=== PATIENT | female | born 1995 ===

== ENCOUNTER 2017-11-11 13:33 | Emergency (ER) | payer OTHER ==
[2017-11-11 13:42] VITALS: PULSE 78
--- NOTE | 2017-11-11 14:02 | ED PDOC ---
HPI: Allergic Reaction Time Seen by Provider: 11/11/17 13:42 Chief Complaint (Nursing): Allergic Reaction Chief Complaint (Provider): Allergic reaction History Per: Patient Additional Complaint(s): Pt is a 22 yo female, no PMH, had milkshake with peanuts and almonds. pt took 2 tabs Benadryl 30mins ago and vomiting x1 15 mins ago pt took another 1 tab Benadryl 15mins ago. + throat pain; itching. No rash, SOB or Chest Pain Past Medical History Reviewed: Nursing Documentation, Vital Signs Vital Signs: Last Vital Signs Temp 98 F 11/11/17 13:39 Pulse 78 11/11/17 13:39 Resp 20 11/11/17 13:39 BP 106/73 11/11/17 13:39 Pulse Ox 100 11/11/17 13:39 - Medical History PMH: No Chronic Diseases - Surgical History Surgical History: No Surg Hx - Family History Family History: States: Unknown Family Hx - Living Arrangements Living Arrangements: With Family - Social History Current smoker - smoking cessation education provided: No Alcohol: Social Drugs: Denies - Home Medications Home Medications: Ambulatory Orders Medication Instructions Recorded Phenazopyridine HCl [Pyridium] 100 mg PO TID #6 tab 09/21/16 Sulfamethoxazole/Trimethoprim 1 tab PO BID 14 Days tab 09/21/16 [Bactrim DS 800 mg-160 mg] traMADol [Ultram] 50 mg PO Q8 #10 tab 09/22/16 Methylprednisolone [Medrol Dose 4 mg PO DAILY #21 mg 11/11/17 Pack (21 tabs)] - Allergies Allergies/Adverse Reactions: Allergies Allergy/AdvReac Type Severity Reaction Status Date / Time nut - unspecified Allergy ANAPHYLAXIS Verified 09/24/16 13:18 Penicillins Allergy RASH Verified 09/24/16 13:18 Review of Systems ROS Statement: Except As Marked, All Systems Reviewed And Found Negative ENT: Positive for: Throat Pain Physical Exam - Reviewed Nursing Documentation Reviewed: Yes Vital Signs Reviewed: Yes - Physical Exam Appears: Positive for: Well, Non-toxic, No Acute Distress Head Exam: Positive for: ATRAUMATIC, NORMAL INSPECTION, NORMOCEPHALIC Skin: Positive for: Normal Color, Warm, DRY Eye Exam: Positive for: EOMI, Normal appearance, PERRL ENT: Positive for: Normal ENT Inspection. Negative for: Pharyngeal Erythema, Tonsillar Exudate, Tonsillar Swelling Neck: Positive for: Normal, Painless ROM Cardiovascular/Chest: Positive for: Regular Rate, Rhythm Respiratory: Positive for: CNT, Normal Breath Sounds Gastrointestinal/Abdominal: Positive for: Normal Exam, Bowel Sounds, Soft Back: Positive for: Normal Inspection Extremity: Positive for: Normal ROM Neurologic/Psych: Positive for: Alert, Oriented - ECG O2 Sat by Pulse Oximetry: 100 - Progress ED Course And Treament: IV access established and treatment initiated with Solumderol and pepcid IV Pt monitored in ED and Vitals remain stable Disposition - Clinical Impression Clinical Impression: Allergic reaction - Patient ED Disposition Is Patient to be Admitted: No - Disposition Disposition: Routine/Home Disposition Time: 17:29 Condition: STABLE Prescriptions: Methylprednisolone [Medrol Dose Pack (21 tabs)] 4 mg PO DAILY #21 mg Instructions: General Allergic Reaction (ED) Forms: [facility] (Ivorian)
[2017-11-11 17:30] VITALS: BP 128/78; RESP 18; TEMP 97
[2017-11-11 17:47] VITALS: O2SAT 100
== END 2017-11-11 17:30 | disposition home or self-care (01) ==
LOC: H.ER 13:33
DX: T78.40XA Allergy, unspecified, initial encounter (principal); Z88.0 Allergy status to penicillin
CPT/HCPCS: 81025; 96374; 96375; 99282; J2930

== ENCOUNTER 2018-04-28 17:44 | Emergency (ER) | payer OTHER ==
--- NOTE | 2018-04-28 19:20 | ED PDOC ---
HPI: Female Pain Time Seen by Provider: 04/28/18 18:16 Chief Complaint (Nursing): Female Genitourinary Chief Complaint (Provider): Burning on urination History Per: Patient History/Exam Limitations: no limitations Onset/Duration Of Symptoms: Days (3) Current Symptoms Are (Timing): Still Present Quality Of Discomfort: Burning Additional Complaint(s): 22 yo female with no medical problems presents with burning on urination. Pt states she finished menses a day prior. Pt states before her menses began she had thick, very white discharge consistent with yeast which she has had in the past. Past Medical History Reviewed: Historical Data, Nursing Documentation, Vital Signs Vital Signs: Last Vital Signs Temp 97.8 F 04/28/18 18:13 Pulse 91 H 04/28/18 18:13 Resp 16 04/28/18 18:13 BP 127/85 04/28/18 18:13 Pulse Ox 95 04/28/18 18:13 - Medical History PMH: No Chronic Diseases - Surgical History Surgical History: No Surg Hx - Family History Family History: States: Unknown Family Hx - Living Arrangements Living Arrangements: With Family - Social History Current smoker - smoking cessation education provided: No - Home Medications Home Medications: Ambulatory Orders Medication Instructions Recorded Phenazopyridine HCl [Pyridium] 100 mg PO TID #6 tab 09/21/16 Sulfamethoxazole/Trimethoprim 1 tab PO BID 14 Days tab 09/21/16 [Bactrim DS 800 mg-160 mg] traMADol [Ultram] 50 mg PO Q8 #10 tab 09/22/16 Methylprednisolone [Medrol Dose 4 mg PO DAILY #21 mg 11/11/17 Pack (21 tabs)] Fluconazole [Diflucan] 150 mg PO ONCE #2 tab 04/28/18 Ciprofloxacin [Cipro] 500 mg PO BID #10 tab 04/30/18 - Allergies Allergies/Adverse Reactions: Allergies Allergy/AdvReac Type Severity Reaction Status Date / Time nut - unspecified Allergy ANAPHYLAXIS Verified 09/24/16 13:18 Penicillins Allergy RASH Verified 09/24/16 13:18 Review of Systems ROS Statement: Except As Marked, All Systems Reviewed And Found Negative Constitutional: Negative for: Fever, Chills Genitourinary Female: Positive for: Dysuria Physical Exam - Reviewed Nursing Documentation Reviewed: Yes Vital Signs Reviewed: Yes - Physical Exam Appears: Positive for: Well, Non-toxic, No Acute Distress Head Exam: Positive for: ATRAUMATIC, NORMAL INSPECTION, NORMOCEPHALIC Skin: Positive for: Normal Color, Warm, DRY Eye Exam: Positive for: Normal appearance ENT: Positive for: Normal ENT Inspection Neck: Positive for: Normal, Painless ROM Respiratory: Negative for: Accessory Muscle Use, Respiratory Distress Gastrointestinal/Abdominal: Positive for: Normal Exam, Soft. Negative for: Tenderness Back: Positive for: Normal Inspection Extremity: Positive for: Normal ROM Neurologic/Psych: Positive for: Alert, Oriented - ECG O2 Sat by Pulse Oximetry: 95 Pulse Ox Interpretation: Normal Medical Decision Making Medical Decision Makin - Went into patients room. Pt has urine at bedside. Pt was not told to wipe prior to urination. New specimen required. 1929 - Urine specimen not in lab. Shoot is down and specimen now being walked up by gill box fixer. Disposition - Clinical Impression Clinical Impression: Yeast infection - Patient ED Disposition Is Patient to be Admitted: No - Disposition Referrals: Idalia Calles MD [Primary Care Provider] - Disposition: Routine/Home Disposition Time: 20:03 Condition: GOOD Prescriptions: Ciprofloxacin [Cipro] 500 mg PO BID #10 tab Fluconazole [Diflucan] 150 mg PO ONCE #2 tab Instructions: Yeast Infection (DC) Forms: [facility] (Chinese) - POA Present On Arrival: None
[2018-04-28 20:22] LABS: SQUAMOUS EPITHIAL < 1 /hpf (0-5); URINE BILIRUBIN NEGATIVE (NEGATIVE); URINE BLOOD MODERATE (NEGATIVE); URINE CLARITY SLIGHTY-CLOUDY (Clear); URINE COLOR STRAW (YELLOW); URINE GLUCOSE (UA) NEG (Normal); URINE LEUKOCYTE ESTERASE LARGE Leu/uL (Negative); URINE PROTEIN NEGATIVE (NEGATIVE); URINE UROBILINOGEN 0.2-1.0 mg/dL (0.2-1.0)
[2018-04-28 21:19] VITALS: BP 118/78; PULSE 72; RESP 18; TEMP 98.4
[2018-04-30 13:06] VITALS: O2SAT 95
== END 2018-04-28 20:00 | disposition home or self-care (01) ==
LOC: H.ER 17:44 → SUPCPDRO 17:44 → H.ER 20:00
DX: B37.3 Candidiasis of vulva and vagina (principal)